=== PATIENT | male | born 1960 | race Caucasian/White ===

== ENCOUNTER 2019-05-29 11:12 | Emergency (ER) | payer OTHER ==
[2019-05-29] MEDS ORDERED: KETOROLAC TROMETHAMINE 60 MG/2 ML SDV IM ONE (11:22)
[2019-05-29] MEDS ORDERED: ONDANSETRON 4 MG TAB.RAPDIS PO ONE (11:22)
[2019-05-29] MEDS ORDERED: TAMSULOSIN HCL 0.4 MG CAP.SR.24H PO ONE (11:22)
--- NOTE | 2019-05-29 11:24 | ER Document Report ---
ED Medical Screen (RME) - General Chief Complaint: Flank Pain Stated Complaint: ABDOMINAL PAIN Time Seen by Provider: 05/29/19 11:17 Mode of Arrival: Ambulatory Information source: Patient Notes: 59-year-old male with history of cardiac disease, monitor your blood pressure presents to the emergency department with generalized abdominal pain mostly on the left side some flank pain that started early this morning. Reports some nausea with dry heaving reports diarrhea last night after he ate. Denies fever. Reports he is really uncomfortable declines narcotics. Denies past medical history of IBS Crohn's colitis. I have greeted and performed a rapid initial assessment of this patient. A comprehensive ED assessment and evaluation of the patient, analysis of test results and completion of the medical decision making process will be conducted by additional ED providers. TRAVEL OUTSIDE OF THE [place] IN LAST 30 DAYS: No - Related Data Allergies/Adverse Reactions: No Known Allergies Allergy (Unverified 05/29/19 11:22) Home Medications: lisonpril, alprazolam, clopedigrel, atorvastatin Past Medical History - Social History Frequency of alcohol use: Occasional Physical Exam - Vital signs Vitals: Temp Pulse Resp BP Pulse Ox 97.4 F 57 L 20 179/105 H 96 05/29/19 11:15 05/29/19 11:15 05/29/19 11:15 05/29/19 11:15 05/29/19 11:15 Course - Vital Signs Vital signs: Temp Pulse Resp BP Pulse Ox 97.4 F 57 L 20 179/105 H 96 05/29/19 11:18 05/29/19 11:15 05/29/19 11:18 05/29/19 11:15 05/29/19 11:18
[2019-05-29] MEDS ORDERED: KETOROLAC TROMETHAMINE INJ/PF 30 MG/1 ML SDV IV ONE (11:47)
[2019-05-29 12:19] LABS: AMORPHOUS SEDIMENT,URINE TRACE /HPF; APPEARANCE,URINE CLOUDY; BILIRUBIN,URINE NEGATIVE (NEGATIVE); COLOR,URINE YELLOW; GLUCOSE, URINE NEGATIVE (NEGATIVE); KETONES,URINE NEGATIVE (NEGATIVE); LEUKOCYTE ESTERASE,URINE NEGATIVE (NEGATIVE); NITRITE,URINE NEGATIVE (NEGATIVE); PROTEIN,URINE NEGATIVE (NEGATIVE); URINE SPECIFIC GRAVITY 1.018
[2019-05-29 12:36] LABS: ABSOLUTE EOSINOPHILS # (AUTO) 0.1 10^3/uL (0.0-0.6); ABSOLUTE LYMPHOCYTES (AUTO) 1.2 10^3/uL (0.5-4.7); ABSOLUTE MONOCYTES (AUTO) 0.7 10^3/uL (0.1-1.4); ABSOLUTE NEUT (AUTO) 6.7 10^3/uL (1.7-8.2); BASOPHILS % (AUTO) 0.5 % (0-2); EOSINOPHILS % (AUTO) 1.1 % (0-6); HEMATOCRIT 41.9 % (37.9-51.0); HEMOGLOBIN 14.7 g/dL (13.5-17.0); MEAN CORPUSCULAR HEMOGLOBIN 33.6 pg (27.0-33.4); MEAN CORPUSCULAR HGB CONC 35.1 g/dL (32.0-36.0); MEAN CORPUSCULAR VOLUME 96 fl (80-97); MONOCYTES % (AUTO) 8.3 % (3-13); PLATELET COUNT 459 10^3/uL (150-450); RED BLOOD COUNT 4.38 10^6/uL (4.35-5.55); RED CELL DISTRIBUTION WIDTH 12.7 % (11.5-14.0); SEGMENTED NEUTROPHILS % (AUTO) 76.1 % (42-78); TOTAL CELLS COUNTED % (AUTO) 100 %; WHITE BLOOD COUNT 8.7 10^3/uL (4.0-10.5)
[2019-05-29 12:48] LABS: ALBUMIN 3.9 g/dL (3.5-5.0); ALKALINE PHOSPHATASE 96 U/L (38-126); ANION GAP 7 (5-19); ASPARTATE AMINO TRANSFERASE 23 U/L (17-59); BILIRUBIN,DIRECT 0.1 mg/dL (0.0-0.4); BILIRUBIN,TOTAL 0.5 mg/dL (0.2-1.3); BLOOD UREA NITROGEN 14 mg/dL (7-20); CALCIUM 9.8 mg/dL (8.4-10.2); CARBON DIOXIDE 25 mmol/L (22-30); CHLORIDE 104 mmol/L (98-107); GLUCOSE 106 mg/dL (75-110); POTASSIUM 4.1 mmol/L (3.6-5.0); TOTAL PROTEIN 6.7 g/dL (6.3-8.2)
[2019-05-29] MEDS ORDERED: NORMAL SALINE 1000 ML 1,000 ML IV ONE (13:30)
--- NOTE | 2019-05-29 13:30 | ER Document Report ---
ED GI/ - General Chief Complaint: Flank Pain Stated Complaint: ABDOMINAL PAIN Time Seen by Provider: 05/29/19 11:17 Mode of Arrival: Ambulatory Notes: 59-year-old male with coronary artery disease status post stents approximately 5 years ago and lower extremity vascular occlusion status post femoropopliteal about 5 years ago presents to the emergency department with left flank pain that radiates around to his mid and lower left abdomen that started abruptly last night. Patient had associated nausea and vomiting and states had a has a "heavy feeling" in his testicle. Denies fevers or chills, denies chest pain, denies generalized abdominal pain. TRAVEL OUTSIDE OF THE [place] IN LAST 30 DAYS: No - Related Data Allergies/Adverse Reactions: No Known Allergies Allergy (Verified 05/29/19 11:36) Home Medications: lisonpril, alprazolam, clopedigrel, atorvastatin Past Medical History - General Information source: Patient - Social History Smoking Status: Current Every Day Smoker Frequency of alcohol use: Occasional Family History: None Patient has suicidal ideation: No Patient has homicidal ideation: No - Past Medical History Cardiac Medical History: Reports: Hx Heart Attack, Hx Hypercholesterolemia, Hx Hypertension Past Surgical History: Reports: Hx Cardiac Catheterization - stents, Hx Vascular Surgery - fem pop Review of Systems - Review of Systems Constitutional: See HPI EENT: No symptoms reported Cardiovascular: See HPI Respiratory: See HPI Gastrointestinal: See HPI Genitourinary: No symptoms reported Male Genitourinary: No symptoms reported Musculoskeletal: No symptoms reported Skin: No symptoms reported Hematologic/Lymphatic: No symptoms reported Neurological/Psychological: No symptoms reported Physical Exam - Vital signs Vitals: Temp Pulse Resp BP Pulse Ox 97.4 F 57 L 20 179/105 H 96 05/29/19 11:15 05/29/19 11:15 05/29/19 11:15 05/29/19 11:15 05/29/19 11:15 - Notes Notes: PHYSICAL EXAMINATION: Reviewed vital signs and charting by RN GENERAL: Alert, interacts well. No acute distress. HEAD: Normocephalic, atraumatic. EYES: Pupils equal and round. Extraocular movements intact. ENT: Oral mucosa moist, tongue midline. NECK: Full range of motion. Trachea midline. LUNGS: Clear to auscultation bilaterally, no wheezes, rales, or rhonchi. No respiratory distress. HEART: Regular rate and rhythm. No murmur ABDOMEN: soft, tenderness to palpation in the left upper and left lower quadrants. No distention. Bowel sounds present BACK: Left CVAT EXTREMITIES: Moves all 4 extremities spontaneously. No edema, No cyanosis. PSYCH: Normal affect, normal mood. SKIN: Warm, dry, normal turgor. No rashes or lesions noted. Course - Re-evaluation Re-evalutation: 05/29/19 13:31 Patient presents with some risk factors and a history of of arterial occlusive disease. I do want to rule out an aortic aneurysm, dissection. CTA chest and abdomen/pelvis has been ordered. 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 I have given him normal saline 1 L prior to the studies. 05/29/19 14:58 CTA chest was normal although not optimized for the aorta. CTA abdomen/pelvis was concerning for a 3.5 cm infrarenal aortic aneurysm with a 4.6 cm outpouching. I called [facility] for vascular surgery consultation, pushed images to their institution. I am awaiting a call back. I am going to start the patient on a nicardipine drip and move him over to the main side with cardiac monitoring to maintain an SBP of less than 140. 05/29/19 15:[address] Cosme, vascular surgeon at [facility], who accepted the patient for transfer. He wants the patient's systolic blood pressure less than 120 and is okay with the patient traveling ground ALS. 05/29/19 16:15 Patient became bradycardic just prior to administering the continuous labetalol infusion. There was some Cardene in the emergency department so the patient is started on a Cardene drip to titrate between 100 120 systolic. Patient will transfer by air and the [facility] is currently in [place]. At this time patient's blood pressures outside of range but we are going to initiate the Cardene drip and he is stable for transfer at this time. - Vital Signs Vital signs: Temp Pulse Resp BP Pulse Ox 97.9 F 53 L 13 127/78 H 97 05/29/19 16:20 05/29/19 16:00 05/29/19 16:36 05/29/19 16:36 05/29/19 16:36 - Laboratory Result Diagrams: 05/29/19 12:05 12/24/19 12:05 Laboratory results interpreted by me: 05/29/19 05/29/19 05/29/19 11:55 12:05 12:05 MCH 33.6 H Plt Count 459 H Sodium 135.6 L Urine Urobilinogen 4.0 H Discharge - Discharge Clinical Impression: Abdominal aortic aneurysm (AAA) 3.0 cm to 5.5 cm in diameter in male Condition: Stable Disposition: [facility]
--- NOTE | 2019-05-29 14:05 | RADIOLOGY REPORT (SQ) ---
EXAM DESCRIPTION: CTA CHEST COMPLETED DATE/TIME: 05/29/2019 1:52 pm REASON FOR STUDY: r/o aortic aneurysm COMPARISON: None. TECHNIQUE: CT scan of the chest performed using helical scanning technique with dynamic intravenous contrast injection. Images reviewed with lung, soft tissue and bone windows. Reconstructed coronal and sagittal MPR images reviewed. Additional 3 dimensional post-processing performed to develop Maximal Intensity Projection images (SC P). All images stored on PACS. All CT scanners at this facility use dose modulation, iterative reconstruction, and/or weight based d osing when appropriate to reduce radiation dose to as low as reasonably achievable (ALARA). [facility]: Dose Right [facility]: CareDose [facility]: Dose Right [facility]: Teradose 4D [facility]: [employer] CONTRAST TYPE AND DOSE: 100 mL Omnipaque 350 Contrast bolus adequate for pulmonary arteries and aorta. RENAL FUNCTION: BUN 14, creatinine 0.78 RADIATION DOSE: . LIMITATIONS: None. FINDINGS: LUNGS AND PLEURA: No masses, infiltrates, or pneumothorax. No pleural effusions or pleura l calcifications. AORTA AND GREAT VESSELS: No aneurysm. Contrast bolus not optimized for the aorta. HEART: No pericardial effusion. No significant coronary artery calcifications. PULMONARY ARTERIES: No emboli visualized in the main pulmonary arteries or the segmental branches. HILAR AND MEDIASTINAL STRUCTURES: No identified masses or abnormal nodes. HARDWARE: None in the chest. UPPER ABDOMEN: No significant findings. Limited exam. THYROID AND OTHER SOFT TISSUES: No masses. No adenopathy. BONES: No acute or significant finding. 3D MIPS: Confirm above findings. OTHER: No other significant finding. IMPRESSION: NORMAL CTA OF THE CHEST. NO PULMONARY EMBOLI. COMMENT: Quality ID # 436: Final reports with documentation of one or more dose reduction techniques (e.g., Automated exposure control, adjustment of the mA and/or kV according to patient size, use of iterative reconstruction technique) TECHNICAL DOCUMENTATION: JOB ID: [id number] [employer]- All Rights Reserved Reading location - IP/workstation name: [email or web address]
--- NOTE | 2019-05-29 14:14 | RADIOLOGY REPORT (SQ) ---
EXAM DESCRIPTION: CTA ABDOMEN/PELVIS W WO COMPLETED DATE/TIME: 05/29/2019 1:51 pm REASON FOR STUDY: r/o AAA/dissection, ?kidney stone COMPARISON: None. TECHNIQUE: CT scan of the abdominal aorta extending to the iliac bifurcation performed with and with out intravenous contrast using helical scanning technique with dynamic intravenous contrast injection . Images reviewed with lung, soft tissue, and bone windows. Reconstructed coronal and sagittal MPR im ages reviewed. All images stored on PACS. Advanced 3D imaging as volume rendering, MIPS, SSD performed? yes All CT scanners at this facility use dose modulation, iterative reconstruction, and/or weight based d osing when appropriate to reduce radiation dose to as low as reasonably achievable (ALARA). [facility]: Dose Right [facility]: CareDose [facility]: Dose Right [facility]: Teradose 4D [facility]: [employer] CONTRAST TYPE AND DOSE: contrast/concentration: Isovue 350.00 mg/ml; Total Contrast Delivered: 100.0 ml; Total Saline Delivered: 90.0 ml RENAL FUNCTION: BUN 14, creatinine 0.78 LIMITATIONS: None. FINDINGS: NON-CONTRASTED IMAGING: No significant renal or bladder calcifications. No other significa nt organ calcifications. POST-CONTRAST IMAGING: AORTA AND VESSELS: There is fusiform aneurysmal dilatation of the infrarenal aorta. Largest diameter 3.5 x 3.5 cm. There is however a focal area just below the renal artery takeoffs which is measured 4.6 cm in greatest diameter. There appears to be focal outpouching of the aneurysm at this site no e vidence of active extravasation. The aneurysm extends to the bifurcation. Iliac arteries demonstrat e calcified plaque. There is a stent in the proximal left SFA. This appears occluded. The renal ar teries, SMA and celiac axis are patent. The MORE is patent as well. LUNG BASES: No significant findings. No nodules or infiltrates. LIVER: Normal size. No masses or dilated ducts. SPLEEN: Normal size. No focal lesions. PANCREAS: No masses. No significant calcifications. No adjacent inflammation or peripancreatic fluid collections. Pancreatic duct not dilated. GALLBLADDER: No identified stones by CT criteria. No inflammatory changes to suggest cholecystitis. ADRENAL GLANDS: No significant masses or asymmetry. RIGHT KIDNEY AND URETER: Numerous right renal cysts. LEFT KIDNEY AND URETER: Numerous left renal cysts. RETROPERITONEUM: No retroperitoneal adenopathy, hemorrhage or masses. BOWEL AND PERITONEAL CAVITY: No masses or inflammatory changes. No free fluid or peritoneal masses. APPENDIX: Normal. ABDOMINAL WALL: No masses. No hernias. BONY STRUCTURES: No significant or acute findings. 3-D IMAGING: Confirms the above findings. OTHER: Small hiatal hernia. IMPRESSION: 3.5 x 3.5 cm fusiform aneurysmal dilatation of the infrarenal aorta. No dissection. Th ere is a focal saccular component demonstrated in the aneurysmal segment of the abdominal aorta near the origin of the aneurysm. This measures 4.6 cm in greatest diameter. No extravasation is demonstr ated. This focal outpouching is worrisome for impending rupture. Recommend vascular consultation. TECHNICAL DOCUMENTATION: JOB ID: [id number] Quality ID # [id number]: Final reports with documentation of one or more dose reduction techniques (e.g., Au tomated exposure control, adjustment of the mA and/or kV according to patient size, use of iterative reconstruction technique) 2010 [employer]- All Rights Reserved Reading location - IP/workstation name: [email or web address]
[2019-05-29] MEDS ORDERED: NICARDIPINE HCL RTU, ISO-OS 20 MG/200 ML RTUINJ IV PRN ×2 (14:55→16:04)
[2019-05-29] MEDS ORDERED: LABETALOL HCL INJ 200 MG/40 ML VIAL IV ONE (15:33)
[2019-05-29] MEDS ORDERED: LABETALOL HCL 200 MG in NORMAL SALINE 160 ML IV ONE (15:45)
[2019-05-29] MEDS ORDERED: NICARDIPINE HCL RTU, ISO-OS 20 MG/200 ML RTUINJ IV ONE (16:03)
[2019-05-29 16:48] VITALS: BP 127/78
== END 2019-05-29 16:48 | disposition short-term general hospital (02) ==
LOC: ER 11:12
DX: I71.4 Abdominal aortic aneurysm, without rupture (principal); R10.9 Unspecified abdominal pain; F17.200 Nicotine dependence, unspecified, uncomplicated; E78.00 Pure hypercholesterolemia, unspecified; I10 Essential (primary) hypertension; I25.2 Old myocardial infarction
CPT/HCPCS: 99285; 96361; 96374; 96375; 36415; 85025; 80053; 81001; 71275; 74174; J3490 ×2; S0119; J1885; J7030